=== PATIENT | female | born 1965 | race Caucasian/White ===

== ENCOUNTER 2016-11-07 09:31 | Emergency (ER) | payer OTHER ==
--- NOTE | ~2016-11-07 | CR63 ---
[facility] A Service of [facility] RADIOLOGY TEXT RESULTS PATIENT: SHELLY RAMOS LOCATION: SED : 67 UNIT #: [id number] AGE: [address]: Jimbo Trevino MD SEX: F ORDER DR: [id number] [place] [id number] MR#: [id number] #: [id number] NAME: SHELLY RAMOS : 1965 SEX: F STUDY DATE/TIME: 11/07/2016 0904 UNIT: SED ROOM: STUDY DESCRIPTION: CR Chest 2 View Attending Physician: Jimbo Trevino M.D. Ordering Physician: Jimbo Trevino M.D. Primary Care Physician: Moo Buck M.D. MEDICAL IMAGING REPORT This report is preliminary unless electronic signature is present. EXAM Chest, 2 views, 11/07/2016, 0904 hours. CLINICAL HISTORY 51-year-old woman with complaint of 1-week history of cough and shortness of air. Former smoker. COMPARISON 09/15/2013 FINDINGS Upright PA and lateral views of the chest again demonstrate significant elevation of the left hemidiaphragm with gaseous distension of the gastric bubble beneath the hemidiaphragm. The cardiac, mediastinal, and hilar contours are normal. The lungs are clear. IMPRESSION Again demonstrated is significant elevation of the left hemidiaphragm with distended bowel beneath the hemidiaphragm. The lungs are clear and there are no effusions. Dictated by... Viviana Hernandez M.D. THIS IS AN ELECTRONICALLY VERIFIED REPORT Viviana Hernandez M.D. at 11/07/2016 2:27 PM AUGUSTINM/maribel TD: 11/07/2016 11:29 JOB #: [id number] [facility] A Service of [facility] RADIOLOGY TEXT RESULTS PATIENT: SHELLY RAMOS LOCATION: SED : 67 UNIT #: [id number] AGE: [address]: Jimbo Trevino MD SEX: F ORDER DR: MEDICAL IMAGING REPORT
[~2016-11-07 09:31] MED LIST: ALBUTEROL17 GM INH; ANTIVERT PO; BENZONATATE PO; FERROUS SULFATE1 TAB PO; HYDROCHLOROTH12.5 MG PO; K-DUR20 ME1 PO; MOBIC7.5 MG/5 M PO; MULTIVITAMIN1 UDCAP PO; NO MEDICATIONS; PRAVACHOL; PROVERA; ROBITUSSIN A-C S5 ML PO; SYNTHROID; VOLTAREN75 MG PO; ZITHROMAX PO
[2016-11-07 09:34] LABS: INFLUENZA A NEG (NEG); INFLUENZA B NEG (NEG)
== END 2016-11-07 09:55 | disposition home or self-care (01) ==
LOC: SED 09:31
PROVIDERS: Emergency Medicine
DX: J06.9 Acute upper respiratory infection, unspecified (principal); Z88.8 Allergy status to other drugs, medicaments and biological substances
CPT/HCPCS: 71020; 87804; 99283